=== PATIENT | male | born 1985 | race Caucasian/White ===

== ENCOUNTER 2019-08-20 23:06 | Emergency (ER) | payer SELFPAY ==
[2019-08-20] MEDS ORDERED: Acetaminophen 500 MG TAB ONE (23:21)
[2019-08-20] MEDS ORDERED: Ketorolac Tromethamine 30 MG/ML VIAL ONE (23:21)
--- NOTE | 2019-08-21 06:43 | RAD ---
LEFT RIBS TWO VIEWS: PA CHEST X-RAY: HISTORY: Left rib pain. Hit on a gate. COMPARISON: None. FINDINGS: There is linear artifact, limiting evaluation. No acute displaced left-sided rib fracture is apprecia enmanuel. No pneumothorax. Thoracic spine vertebral body height appears maintained. IMPRESSION: Clear lungs. No acute displaced left-sided rib fracture. POS: HOME
== END 2019-08-20 23:45 | disposition home or self-care (01) ==
LOC: MADERS 23:06
DX: S22.32XA Fracture of one rib, left side, initial encounter for closed fracture (principal); E11.9 Type 2 diabetes mellitus without complications; Z79.4 Long term (current) use of insulin; W23.1XXA Caught, crushed, jammed, or pinched between stationary objects, initial encounter
CPT/HCPCS: J1885